=== PATIENT | male | born 2000 | race Caucasian/White ===

== ENCOUNTER 2022-08-27 19:45 | Emergency (ER) | payer OTHER, SELFPAY ==
--- NOTE | 2022-08-27 19:47 | XRR_ITS ---
PROCEDURE INFORMATION: Exam: XR Left Ankle Exam date and time: 08/27/2022 8:12 PM Age: 21 years old Clinical indication: Injury or trauma; Fall; Sprain or strain; Ankle; Left TECHNIQUE: Imaging protocol: Radiologic exam of the left ankle. Views: 3 or more views. COMPARISON: CR (LOW EXM, ) 08/27/2022 8:09 PM FINDINGS: Bones/joints: Osseous structures are intact. No fracture or malalignment. Visualized joint surfaces are preserved. Soft tissues: Unremarkable. XR/XR ankle LT min 3V* [id number] IMPRESSION: Negative exam. No acute bony abnormalities.
--- NOTE | 2022-08-27 19:47 | XRR_ITS ---
PROCEDURE INFORMATION: Exam: XR Left Foot Exam date and time: 08/27/2022 8:09 PM Age: 21 years old Clinical indication: Injury or trauma; Fall; Sprain or strain; Foot; Left TECHNIQUE: Imaging protocol: Radiologic exam of the left foot. Views: 3 or more views. COMPARISON: No relevant prior studies available. FINDINGS: Bones/joints: Normal. No fracture, dislocation or malalignment. Joint surfaces are perserved. Soft tissues: Normal. XR/XR foot LT min 3V* [id number] IMPRESSION: Negative exam left foot.
[2022-08-27 19:51] VITALS: BP 124/65; PULSE 136; RESP 19; TEMP 36.9; O2SAT 97; BMI 31.1
--- NOTE | 2022-08-27 20:18 | W.ED.EXTPRO ---
HPI - Extremity Problem General: Chief complaint: Extremity Injury, Lower Stated complaint: left foot injury Time Seen by Provider: 08/27/22 20:17 History of Present Illness: 21-year-old male patient comes in today with complaints of injury to the left ankle/foot. Patient was playing dodgeball when he came to a stop and felt a pop in his Achilles tendon. Patient appears nontoxic. Patient appears mild to moderate pain. Patient has no chronic medical problems. Associated symptoms: Deny chest pain or fever(s) Review of Systems Const: Denies: fever(s) Card: Denies: chest pain Resp: Denies: dyspnea Musc: Reports: extremity pain Physical Exam Const: COMMON NORMALS: alert HENMT: COMMON NORMALS: normocephalic HEAD & SCALP: normocephalic Neck/C-Spine: COMMON NORMALS: full ROM Resp: COMMON NORMALS: normal respiratory effort Cardio: COMMON NORMALS: regular rate and regular rhythm RATE: regular rate RHYTHM: regular rhythm Extremity: LEFT LOWER EXTREMITY: Yes ankle joint (Patient has good range of motion, minimal swelling, ) OTHER: Achilles tendon tenderness on the left Neuro: SENSORIUM/ORIENTATION: Yes alert Course Vital Signs: Vital signs: Vital Signs Temperature 98.4 F 08/27/22 19:51 Pulse Rate 136 H 08/27/22 19:51 Respiratory Rate 19 H 08/27/22 19:51 Blood Pressure 124/65 08/27/22 19:51 Pulse Oximetry 97 08/27/22 19:51 Oxygen Delivery Me thod 08/27/22 19:51 MDM - Extremity (Nontraumatic) Medical Decision Making 21-year-old male patient comes in today for injury to the left ankle. On exam patient has some tenderness to the left Achilles with normal range of motion. Pulses are intact. Differential diagnosis includes not limited to fracture, dislocation, strain, tendon rupture. I have a suspicion for a partial Achilles tendon rupture. Patient does have good range of motion. Recommend follow-up with foot and ankle surgeon for further evaluation and treatment. Patient was placed in elastic bandage and crutches. Patient reported understanding and agreed to plan. Patient states he will follow-up with his primary care provider in [facility]. Discharge Plan Discharge Patient Disposition: Home Clinical Impression: Strain of left Achilles tendon, initial encounter Condition: Stable Discharge Orders: Discharge ED (Routine); Ordered 08/27/22 Ordered By: Shay Cope Discharge Diet: Usual diet Discharge Activity: Increase activity as tolerated Patient Instructions: Achilles Tendon Rupture (ED) Activity Restrictions/Additional Instructions: Use acetaminophen and ibuprofen for pain. Increase activity as tolerated. You need to follow-up with the ankle-foot surgeon for further evaluation and treatment. Use ice or heat for further comfort. Return to ER for new concerns. Coding Level of Care Code ED Office Workforce Planner for Jo Ann Brock
== END 2022-08-27 20:30 | disposition home or self-care (01) ==
PROVIDERS: Emergency Provider Nurse Practitioner Family
DX: S86.012A Strain of left Achilles tendon, initial encounter (principal); X58.XXXA Exposure to other specified factors, initial encounter
CPT/HCPCS: 73610; 73630; 99283; E0114